=== PATIENT | female | born 1970 | race African-American/Black ===

== ENCOUNTER 2021-08-21 16:45 | Emergency (ER) | payer BC, OTHER ==
[~2021-08-21] VITALS: Ht 165.1 cm; Wt 74.8 kg
== END 2021-08-21 17:51 | disposition home or self-care (01) ==
LOC: ER 16:45
DX: S60.511A Abrasion of right hand, initial encounter (principal); W19.XXXA Unspecified fall, initial encounter; Y93.89 Activity, other specified; Y92.89 Other specified places as the place of occurrence of the external cause